=== PATIENT | female | born 1960 | race Caucasian/White ===

== ENCOUNTER 2017-07-13 09:24 | Emergency (ER) | payer MEDICAID, MEDICARE ==
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
[2017-07-13] MEDS ORDERED: HYDROcodone/ACETAMINOPHEN 1 EACH TABLET PO ONE (10:25)
[2017-07-13] MEDS ORDERED: HYDROcodone/ACETAMINOPHEN 1 EACH TABLET ONE (10:30)
[2017-07-13 10:39] VITALS: BP 120/68
[2017-07-13 10:42] LABS: Hematocrit 35.9 % (37.0-47.0); Hemoglobin 11.6 gm/dL (12.5-16.0); Mean Cell Volume 85.9 fl (78-100); Mean Corpuscular Hemoglobin 27.8 pg (27-31); Mean Corpuscular Hgb Conc 32.3 g/dl (32-36); Mean Platelet Volume 11.2 fl (6.0-9.5); Neutrophil # 8.4 K/mm3 (1.3-6.0); Neutrophil % 73.5 % (42-75.0); Platelet Count 276 K/mm3 (150-450); Red Blood Count 4.18 M/mm3 (4.2-5.4); Red Cell Distribution Width 16.3 % (11.5-14.0); White Blood Count 11.4 K/mm3 (4.0-10.5)
[2017-07-13 11:01] LABS: Albumin * 4.4 gm/dl (3.4-5.0); Anion Gap 11.7 mmol/L (6.8-13.8); BUN/Creatinine Ratio 8.1 (9.0-21.6); Bilirubin, Total 0.6 mg/dL (0.0-1.1); Ca. Corrected For Albumin 9.2 mg/dL (8.4-10.2); Calcium * 9.8 mg/dL (7.9-10.9); Carbon Dioxide 27.7 mmol/L (24-32.6); Potassium 3.4 mmol/L (3.4-4.6); TSH * 0.645 uIU/mL (0.358-3.74)
== END 2017-07-13 11:20 | disposition home or self-care (01) ==
LOC: ER 09:24
DX: I87.2 Venous insufficiency (chronic) (peripheral) (principal); R60.0 Localized edema; F17.210 Nicotine dependence, cigarettes, uncomplicated